=== PATIENT | female | born 1945 | race Caucasian/White ===

== ENCOUNTER 2017-11-18 15:27 | Emergency (ER) | payer MEDICARE ==
--- NOTE | 2017-11-18 16:37 | RAD ---
LEFT SHOULDER THREE VIEW 11/18/17 HISTORY: Pain. Fall on shoulder. COMPARISON: None. FINDINGS: There is a minimally displaced fracture of the left humeral neck extending into the greater tuberosit y. There is less than 1 cm displacement. Age indeterminate left third and fourth rib fractures. IMPRESSION: 1. Minimally displaced left humeral neck fracture. 2. Age indeterminate left third and fourth rib fractures without significant displacement. No pn eumothorax. POS: [facility]
== END 2017-11-18 16:55 | disposition home or self-care (01) ==
LOC: NAV ERS 15:27
DX: S42.292A Other displaced fracture of upper end of left humerus, initial encounter for closed fracture (principal); Z79.899 Other long term (current) drug therapy; W19.XXXA Unspecified fall, initial encounter; Y92.009 Unspecified place in unspecified non-institutional (private) residence as the place of occurrence of the external cause